=== PATIENT | female | born 2000 | race Caucasian/White ===

== ENCOUNTER 2021-12-06 04:08 | Emergency (ER) | payer BC, SELFPAY ==
[2021-12-06] VITALS (14 sets, daily range): BP systolic 113–127; BP diastolic 67–93; PULSE 100–119; RESP 15–27; TEMP 36.6; O2SAT 97–100
--- NOTE | ~2021-12-06 | XR_ITS ---
EXAMINATION: XR chest 1V portable DATE: 12/06/2021 04:37 INDICATION: Thoracic back pain TECHNIQUE: frontal and lateral views of the chest were obtained. COMPARISON: None FINDINGS: Patchy airspace opacities in the medial left mid to lower lung zones consistent with pneumonia. Right lung is clear. No pleural effusion or pneumothorax. The cardiomediastinal silhouette is normal. Mild thoracic dextrocurvature. IMPRESSION: 1. Left lower lobe pneumonia. Reviewed, dictated and finalized at location A.
--- NOTE | ~2021-12-06 | CT_ITS ---
EXAMINATION: CTA chest PE protocol DATE: 12/06/2021 05:31 INDICATION: Left posterior back pain. Elevated d-dimer. TECHNIQUE: Computed tomography (CT) pulmonary angiogram of the chest was performed with 100 mL Omnipa que-350 intravenous contrast. Additional 3D reconstructions utilizing coronal maximum intensity proje ction (MIP) were performed. Automated exposure control and iterative reconstruction technique were em ployed. The dose-length product was 135.10 mGy-cm. COMPARISON: None FINDINGS: Excellent contrast opacification of the pulmonary arteries. There is mild streak artifact from dense contrast in the superior vena cava and right atrium. No significant motion artifact yielding diagnost ic quality study which demonstrates no pulmonary embolism. Consolidation and patchy airspace opacitie s throughout the superior and posterior basilar segments of the left lower lobe consistent with pneum onia no pulmonary edema, pleural effusion or pneumothorax. Heart size is normal. Thoracic aorta is no rmal in caliber with no dissection. Mild likely reactive left hilar lymphadenopathy. No pathologicall y enlarged thoracic lymphadenopathy. Visualized upper abdomen is unremarkable with a likely splenule near the tail of the pancreas. IMPRESSION: 1. Left lower lobe pneumonia. No pulmonary embolism. Reviewed, dictated and finalized at location A.
--- NOTE | 2021-12-06 04:13 | ECG_ITS ---
Measurements Intervals [place] Rate: 126 P: 64 OK: 154 QRS: 68 QRSD: 83 T: 60 QT: 312 QTc: 453 Interpretive Statements SINUS TACHYCARDIA BASELINE ARTIFACT- V4-V5 ABNORMAL ECG Electronically Signed On 12-06-2021 9:13:55 CDT by Jaydon Booker D.O.
--- NOTE | 2021-12-06 04:29 | ED.GENADULT ---
HPI - General Adult General Chief complaint: Back Pain/Injury Stated complaint: mid back pain, lung pain Time Seen by Provider: 12/06/21 04:33 History of Present Illness HPI narrative: Patient a 21-year-old female who presents the emergency department with chief complaint of left upper back pain. The patient states that she has not been feeling so good has had some nausea and vomiting and states this evening she woke up and had a sharp pain just medial to her left shoulder blade. The patient states the pain is worse with inspiration and improved with rest. The patient denies fever reports has had nausea and vomiting and her throat feels a little sore with this. Patient states that she has not had symptoms like this before in the past. Patient reports that she does not smoke cigarettes but vapes and reports that she takes control pills. Related Data Allergies Allergy/AdvReac Type Severity Reaction Status Date / Time latex Allergy Unknown Unknown Verified 12/06/21 04:47 Review of Systems Review of Systems: A 10 system review of systems was completed on the patient and is negative except for what is stated in the HPI. Nursing and ancillary documentation was reviewed. [facility] Family History Family History Mother Diabetes mellitus Grandparent Hypertension Social History Social History Smoking status: Never smoker Alcohol intake: never Exam Narrative: GENERAL: Well-appearing, well-nourished, and in no acute distress. HEAD: Normocephalic, atraumatic. EYES: PERRLA and EOMI. ENT: Nares clear, no rhinorrhea or epistaxis. Mucous membranes moist. NECK: Supple. CHEST: Clear to auscultation. No respiratory distress. HEART: Regular rate and rhythm. No murmur heard. Normal peripheral pulses. ABDOMEN: Soft, nontender, nondistended, normal active bowel sounds. EXTREMITIES: Normal range of motion. No edema. SKIN: Warm, dry, no rash. NEURO: No focal deficits. Alert and oriented x3. PSYCH: Normal mood and affect. Course Course Emergency Course: CT chest shows a significant infiltrate in the left lower lobe consistent with pneumonia no evidence of pulmonary embolism Vital Signs Vital signs: Vital Signs Temperature 36.6 C 12/06/21 04:19 Pulse Rate 119 H 12/06/21 04:19 Respiratory Rate 16 12/06/21 04:19 Blood Pressure 113/93 H 12/06/21 04:19 Pulse Oximetry 98 12/06/21 04:19 Oxygen Delivery Room Air 12/06/21 04:19 Temperature 36.6 C 12/06/21 04:19 Pulse Rate 111 H 12/06/21 06:27 Respiratory Rate 19 12/06/21 06:27 Blood Pressure 127/80 12/06/21 06:27 Pulse Oximetry 100 12/06/21 06:27 Oxygen Delivery Room Air 12/06/21 04:19 Medical Decision Making Vital Signs Vital Signs: Vital Signs Temperature 36.6 C 12/06/21 04:19 Pulse Rate 119 H 12/06/21 04:19 Respiratory Rate 16 12/06/21 04:19 Blood Pressure 113/93 H 12/06/21 04:19 Pulse Oximetry 98 12/06/21 04:19 Oxygen Delivery Room Air 12/06/21 04:19 Temperature 36.6 C 12/06/21 04:19 Pulse Rate 111 H 12/06/21 06:27 Respiratory Rate 19 12/06/21 06:27 Blood Pressure 127/80 12/06/21 06:27 Pulse Oximetry 100 12/06/21 06:27 Oxygen Delivery Room Air 12/06/21 04:19 Lab Data Result diagrams: 12/06/21 04:37 12/06/21 04:37 Labs: Lab Results 12/06/21 12/06/21 12/06/21 Range/Units 04:35 04:37 04:37 WBC 10.1 H (4.5-10.0) K/mm3 RBC 4.58 (4.2-5.4) M/mm3 Hgb 14.5 (12.0-15.0) g/dL Hct 42.4 (37.0-47.0) % MCV 92.6 (80-100) fl MCH 31.7 (26-34) pg MCHC 34.2 (32-36) g/dl RDW 11.5 (11.5-14.5) % Plt Count 200 (150-375) k/mm3 MPV 9.6 (7.4-10.4) fl Immature Gran % (Auto) 0.4 (0-0.5) % Neut % (Auto) 70.8 (45.5-73.1) % Lymph % (Auto) 15.6 L (18.3-44.2) % [place] % (Auto) 10.5
[2021-12-06 04:45] LABS: Appearance Urine Clear (Clear); Bilirubin Urine Negative (Negative); Blood Urine Trace-lysed (Negative); Color Urine Yellow (Yellow); Glucose Urine UA Negative (Negative); Ketones Urine Negative (Negative); Leukocyte Esterase Ur Negative LEU/UL (Negative); Nitrate Urine Negative (Negative); Protein Urine 1+ mg/dL (Negative)
[2021-12-06 04:45] LABS: Basophils Percent Auto 0.3 % (0.2-1.2); Eosinophils Absolute Auto 0.2 K/mm3 (0-0.3); Eosinophils Percent Auto 2.4 % (0-4.4); Hematocrit 42.4 % (37.0-47.0); Hemoglobin 14.5 g/dL (12.0-15.0); Immature Granulocyte Absolute 0.04 K/mm3 (0.00-0.031); Immature Granulocyte Percent A 0.4 % (0-0.5); Lymphocytes Absolute Auto 1.58 K/mm3 (0.9-3.2); Lymphocytes Percent Auto 15.6 % (18.3-44.2); Mean Corpuscular HGB Conc 34.2 g/dl (32-36); Mean Corpuscular Hemoglobin 31.7 pg (26-34); Mean Corpuscular Volume 92.6 fl (80-100); Mean Platelet Volume 9.6 fl (7.4-10.4); Monocytes Absolute Auto 1.1 K/mm3 (0.1-0.6); Monocytes Percent Auto 10.5 % (2.6-8.5); Neutrophils Absolute Auto 7.2 K/mm3 (1.3-6.7); Neutrophils Percent Auto 70.8 % (45.5-73.1); Platelet Count Result 200 k/mm3 (150-375); Red Blood Count 4.58 M/mm3 (4.2-5.4); Red Cell Distribution Width 11.5 % (11.5-14.5); White Blood Count 10.1 K/mm3 (4.5-10.0)
[2021-12-06] MEDS: ASPIRIN 81 MG CHEWABLE TABLET 324 MG PO (04:47)
[2021-12-06] MEDS: MORPHINE SULFATE (*CRX) 4 MG/ML INJ IV PUSH (04:48)
[2021-12-06 04:50] LABS: Bacteria Urine Trace /hpf; Mucus Urine Rare /lpf; RBC Urine 0-2 /hpf (0-2); Squamous Epithelial Cell Urine Occasional /hpf (Few); WBC Urine 0-3 /hpf
[2021-12-06 04:51] LABS: Add Urine Microscopic? YES
[2021-12-06 04:55] LABS: Alanine Aminotransferase 20 U/L (6-35); Albumin Level 4.3 g/dL (3.5-5.1); Alkaline Phosphatase 84 U/L (38-126); Anion Gap 11 mmol/L (8-16); Aspartate Amino Transferase 28 U/L (14-36); Bilirubin,Total 0.3 mg/dL (0.2-1.3); Blood Urea Nitrogen 3 mg/dL (7-17); Calcium 8.3 mg/dL (8.4-10.2); Carbon Dioxide 26 mmol/L (22-30); Chloride 103 mmol/L (98-107); Estimated CRCL calculation 101 ml/min; Estimated Glomerular Filt Rate > 60; Glucose 120 mg/dL (65-110); Lipase 21 U/L (23-300); Potassium 3.1 mmol/L (3.4-5.0); Sodium 140 mmol/L (137-145)
[2021-12-06 04:57] LABS: INR 1.2; Prothrombin Time 14.6 Seconds (11.1-14.7)
[2021-12-06 04:58] LABS: Partial Thromboplastin Time 37.3 SECONDS (22.3-36.8)
[2021-12-06 04:59] LABS: D Dimer 0.69 ug/mL (<0.48)
[2021-12-06 05:04] LABS: NT Pro B Type Natriuretic Pept 29 pg/mL (5-100)
[2021-12-06 05:06] LABS: Troponin I < 0.012 ng/mL (0.000-0.034)
[2021-12-06 06:40] LABS: SARS-CoV-2 RNA PCR Negative
== END 2021-12-06 06:55 | disposition home or self-care (01) ==
PROVIDERS: Emergency Provider Emergency Medicine
DX: J18.9 Pneumonia, unspecified organism (principal); Z20.822 Contact with and (suspected) exposure to COVID-19
CPT/HCPCS: 36415; 71045; 71275; 80053; 81001; 81025; 83690; 83880; 84484; 85025; 85380; 85610; 85730; 93005; 96374; 99284; A9270; C9803; J2270; Q9967; U0003; U0005